=== PATIENT | male | born 1985 | race African-American/Black ===

== ENCOUNTER 2017-02-10 15:59 | Emergency (ER) | payer OTHER ==
--- NOTE | ~2017-02-10 | CT2 ---
[facility] A Service of [facility] RADIOLOGY TEXT RESULTS PATIENT: NAHUN KOEHLER JR LOCATION: [facility] : [birth year] UNIT #: [id number] AGE: [address]: Edi Fuentes DO SEX: M ORDER DR: [id number] [facility] [address] [place], [place] [address] [id number] E MR#: [id number] #: [id number] NAME: NAHUN KOEHLER JR : 1985 SEX: M STUDY DATE/TIME: 02/10/2017 16:52 UNIT: [facility] ROOM: STUDY DESCRIPTION: CT Abd and Pelv W Cont Attending Physician: Edi Fuentes D.O. Ordering Physician: Edi Fuentes D.O. Primary Care Physician: Marylu Hernandez M.D. MEDICAL IMAGING REPORT This report is preliminary unless electronic signature is present EXAM CT of the abdomen and pelvis with contrast. DATE OF EXAM 02/10/2017 INDICATIONS Left-sided abdominal pain for 2 days. Worse this morning. TECHNIQUE CT abdomen and pelvis performed following administration of IV contrast. Coronal and sagittal reformatted images were obtained. NOTE: This CT exam was performed with one or more of the following radiation dose reduction techniques: automatic exposure control, adjustment of mA and/or kV according to patient size, and iterative reconstruction. COMPARISON Comparison is made with 01/31/2015. FINDINGS Lung bases are clear. Liver, gallbladder and spleen are unremarkable. Tiny cyst left kidney. Right kidney unremarkable. Adrenal glands and pancreas are unremarkable. No ascites or lymphadenopathy. PELVIS: Colon is unremarkable. The appendix is normal. There is some increased mucosal enhancement involving the terminal ileum and also distal portions of the ileum. This may indicate the possibility of inflammatory bowel disease or ileitis. There is no surrounding inflammatory stranding, however. No evidence of bowel obstruction. No free fluid. The bone windows are unremarkable. IMPRESSION There is increased mucosal enhancement involving the terminal ileum and [facility] A Service of [facility] RADIOLOGY TEXT RESULTS PATIENT: NAHUN KOEHLER JR LOCATION: [facility] : [birth year] UNIT #: [id number] AGE: [address]: Edi Fuentes DO SEX: M ORDER DR: also distal portions of the ileum. This may indicate inflammatory bowel disease or ileitis. No evidence of bowel obstruction or inflammatory stranding. No evidence of abscess or fluid collection. Dictated by... Darrius Nava M.D. THIS IS AN ELECTRONICALLY VERIFIED REPORT Darrius Nava M.D. at 02/11/2017 10:03 AM MAT/ish TD: 02/10/2017 21:59 JOB #: [id number] MEDICAL IMAGING REPORT Page 1 of 1 COPY
[2017-02-10 14:23] LABS: BASOPHIL% 0.3 % (0-2.5); EOSINOPHIL# 0.1 X10e3 (0-0.7); EOSINOPHIL% 0.4 % (0.0-7.0); HEMOGLOBIN 13.4 gm/dL (13.0-16.0); LYMPHOCYTE# 2.7 X10e3 (1.0-3.5); LYMPHOCYTE% 23.7 % (17.0-45.0); MEAN CELL VOLUME 83.4 FL (83-96); MEAN CORPUSCULAR HEMOGLOBIN 26.6 PG (28-34); MEAN CORPUSCULAR HGB CONC 31.9 g/dL (30-36); MEAN PLATELET VOLUME 7.9 FL (6.5-11.5); MONOCYTE# 0.6 X10e3 (0-1.0); MONOCYTE% 5.3 % (3.0-12.0); NEUTROPHIL# 7.9 X10e3 (1.5-7.1); NEUTROPHIL% 70.3 % (40-75); PLATELET COUNT 185 X10e3 (140-420); RED BLOOD COUNT 5.04 X10e (3.90-5.60); RED CELL DISTRIBUTION WIDTH 13.5 % (11.0-15.5); WHITE BLOOD COUNT 11.3 X10e3 (4.0-10.5)
[2017-02-10 14:28] LABS: DIFF IND NO
[2017-02-10 14:32] LABS: URINE SOURCE CLEAN CATCH
[2017-02-10 14:45] LABS: URINE APPEARANCE CLEAR; URINE BILIRUBIN NEG (NEG); URINE BLOOD NEG (NEG); URINE COLOR YELLOW; URINE GLUCOSE NEG (NEG); URINE KETONE NEG (NEG); URINE LEUKOCYTE ESTERASE NEG (NEG); URINE NITRATE NEG (NEG); URINE PH 5.5 (5-8); URINE PROTEIN NEG (NEG); URINE SPECIFIC GRAVITY 1.025 (1.003-1.035); URINE UROBILINOGEN 0.2 MG/DL (NEG)
[2017-02-10 14:46] LABS: BILIRUBIN, DIRECT 0.1 mg/dL (0.0-0.2); BILIRUBIN,INDIRECT 0.8 mg/dL (0.0-0.9); BILIRUBIN,TOTAL 0.9 mg/dL (0.2-2.0); BUN/CREATININE RATIO 12.5; CALCIUM SERUM 8.7 mg/dL (8.4-10.2); CREATININE SERUM 0.8 mg/dL (0.6-1.4); POTASSIUM 3.4 mmol/L (3.5-5.1); PROTEIN TOTAL SERUM 7.6 g/dL (6.0-8.3)
[2017-02-10 14:49] LABS: CULTURE INDICATED? NO
[~2017-02-10 15:59] MED LIST: OMEPRAZOLE40 M1 PO
[2017-02-12 23:31] LABS: CHLAMYDIA TRACH Not Detected (Not Detected); N GONOR Not Detected (Not Detected)
[2017-04-10] MEDS ORDERED: CLARITIN10 M3 PO (11:47)
[2017-04-10] MEDS ORDERED: OMEPRAZOLE40 M1 PO (11:47)
[2017-04-10] MEDS ORDERED: PANTOPRAZOLE SO40 MG PO (11:48)
== END 2017-02-10 18:53 | disposition home or self-care (01) ==
LOC: CED 15:59
PROVIDERS: Emergency Medicine
DX: R10.11 Right upper quadrant pain (principal)
CPT/HCPCS: 36415; 74177; 80048; 80076; 81003; 83690; 84484; 85025; 87491; 87591; 96361; 96374; 96375; 99284; J1885; Q9967

== ENCOUNTER → 2017-04-10 | Day surgery (SDC) | payer OTHER ==
[~2017-04-10] MED LIST changes: +CLARITIN10 M3 PO; +PANTOPRAZOLE SO40 MG PO
--- NOTE | ~2017-04-10 | OR ---
Unit #: [id number] #: [id number] Patient: NAHUN KOEHLER JR [id number] [address] [address] [id number] O MR#: [id number] NAME: NAHUN KOEHLER JR ROOM: Date of Procedure: 04/10/2017 Admission Date: 04/10/2017 Surgeon: Melvin Montgomery M.D. : 1985 Attending Physician: Melvin Montgomery M.D. Primary Care Physician: Marylu Hernandez M.D. OPERATIVE REPORT PROCEDURE PERFORMED Colonoscopy with biopsies. INDICATIONS FOR PROCEDURE Abnormal CT scan showing thickening of terminal ileum, possibility of Crohn disease. MEDICATIONS Monitored anesthesia. POSTOPERATIVE FINDINGS 1. There was mild inflammation involving terminal ileum appears to be clear. Biopsies were taken from the involved area. 2. Mild left-sided inflammation, appeared nonspecific. Biopsies were taken. 3. Rest of the exam was normal. PLAN No specific treatment at this point. Follow up on pathology report. DESCRIPTION OF PROCEDURE The patient was explained of the procedure, risks, and benefits along with the risks and benefits of anesthesia. He was brought to the endoscopy room. Propofol anesthesia was given. Rectal exam was done, which was normal. Colonoscope was lubricated, passed up the rectum, advanced under direct vision all the way to the cecum. Cecum was identified by ileocecal valve and appendiceal orifice. Terminal ileum was intubated, showed changes as described. Biopsies were taken. Left side colonoscopy showed mild inflammation. Biopsies were taken. I retroflexed in the rectum, small hemorrhoids were seen. The scope was gently pulled out. He tolerated it well. No major complications were seen. Dictated by... Benny Hutton/marquis TD: 04/10/2017 18:02 JOB #: [id number] Unit #: [id number] #: [id number] Patient: NAHUN KOEHLER JR OPERATIVE REPORT Page 1 of 1 X Melvin Montgomery MD X PROCEDURE OPERATIVE NOTE
== END | disposition home or self-care (01) ==
LOC: COPS 10:32
DX: K52.9 Noninfective gastroenteritis and colitis, unspecified (principal); K64.9 Unspecified hemorrhoids; K21.9 Gastro-esophageal reflux disease without esophagitis; F12.10 Cannabis abuse, uncomplicated; Z79.899 Other long term (current) drug therapy
CPT/HCPCS: 88305